=== PATIENT | male | born 1955 | race Caucasian/White ===

== ENCOUNTER 2018-12-19 10:05 | Day surgery (SDC) | payer OTHER ==
[2018-12-19] MEDS: PHENYLephrine 10% 5 ML OPH RIGHT EYE (11:14)
[2018-12-19] MEDS: NEPAFENAC 0.1% 3 ML OPH RIGHT EYE (11:14)
[2018-12-19] MEDS: MOXIFLOXACIN 0.5% 3 ML OPH RIGHT EYE (11:14)
[2018-12-19] MEDS: CYCLOPENTOLATE 2% 2 ML OPH RIGHT EYE (11:16)
[2018-12-19] MEDS ORDERED: FENTAnyl 50 MCG/ML VIAL (11:48)
[2018-12-19] MEDS ORDERED: PROPOFOL 20 ML (11:48)
[2018-12-19] MEDS ORDERED: ONDANSETRON 4 MG INJ (12:04)
[2018-12-19] MEDS ORDERED: LABETALOL HCL 20MG INJ IV (12:30)
[2018-12-19] MEDS ORDERED: OXYCODONE/ACETAMINOPHEN (5/325) TAB PO ×2 (12:30)
[2018-12-19] MEDS ORDERED: FENTAnyl 50 MCG/ML VIAL IV ×3 (12:30)
[2018-12-19] MEDS ORDERED: hydrALAzine 20 MG INJ IV (12:30)
[2018-12-19] MEDS ORDERED: ONDANSETRON 4 MG INJ IV (12:30)
[2018-12-19] MEDS ORDERED: MEPERIDINE 25 MG INJ IV (12:30)
[2018-12-19] MEDS: TIMOLOL 0.5% 5 ML OPH RIGHT EYE (12:50)
[2018-12-19] MEDS ORDERED: EPINEPHrine 1 MG INJ (13:00)
[2018-12-19] MEDS ORDERED: NA HYALURONATE/CHONDROITIN 0.5 ML SYG (13:00)
== END 2018-12-19 14:50 | disposition home or self-care (01) ==
LOC: SDS 10:05
DX: H25.11 Age-related nuclear cataract, right eye (principal); I10 Essential (primary) hypertension; E11.9 Type 2 diabetes mellitus without complications; Z79.84 Long term (current) use of oral hypoglycemic drugs
CPT/HCPCS: 66984; 82962